=== PATIENT | female | born 2000 | race Caucasian/White ===

== ENCOUNTER 2020-03-12 16:03 | Emergency (ER) | payer OTHER ==
[2020-03-12] MEDS ORDERED: methylPREDNISolone SOD SUCCI 125 MG/2 ML VIAL IM ONE (16:28)
--- NOTE | 2020-03-12 17:39 | ED ---
Allergic Reaction HPI - General Chief complaint: Allergic Reaction Stated complaint: Allergic reaction Time Seen by Provider: 03/12/20 16:12 Source: patient Mode of arrival: ambulatory Limitations: no limitations - History of Present Illness Initial Comments: Patient is a 19-year-old female presenting to the emergency Department with complaints of an ALLERGIC reaction that started yesterday. Patient states she is highly ALLERGIC to corn and even the smell from popcorn can trigger her ALLERGY. Patient states yesterday at work, someone she works with me popcorn and she smelled in the hallway. Patient states shortly after she felt like her throat was swelling. Patient states she did not have any difficulty breathing, no rashes, no vomiting. Patient states when she got home her mother gave her 50 mg of Benadryl and she was able to go to sleep. Patient states when she woke up this morning she was still feeling symptomatic so they repeated the Benadryl dose a can and then again at approximately 2 hours prior to arrival. Patient again states she is not having any difficulty breathing continues to have no other symptoms other than the feeling of her throat being swollen. She states she was able to eat a sandwich and has been able to drink fluids without difficulty. Patient states she does have an EpiPen at home but has never had to use that. She states she is not at this time. She has no further complaints at this time. Upon arrival to the ER, her vital signs are stable. - Related Data Previous Rx's Medication Instructions Recorded predniSONE 10 mg PO BID 3 Days #6 tab 03/12/20 Allergies Allergy/AdvReac Type Severity Reaction Status Date / Time corn Allergy Unknown Verified 03/12/20 16:09 Review of Systems ROS Statement: Those systems with pertinent positive or pertinent negative responses have been documented in the HPI. ROS Other: All systems not noted in ROS Statement are negative. Past Medical History Past Medical History: No Reported History History of Any Multi-Drug Resistant Organisms: None Reported Past Surgical History: Adenoidectomy, Tonsillectomy Past Psychological History: Anxiety Smoking Status: Former smoker Past Alcohol Use History: None Reported Past Drug Use History: None Reported General Exam - General Exam Comments Initial Comments: GENERAL: Patient is well-developed and well-nourished. Patient is nontoxic and in no acute distress. HEAD: Atraumatic, normocephalic. EYES: Pupils equal round and reactive to light, extraocular movements intact, sclera anicteric, conjunctiva are normal. Eyelids were unremarkable. ENT: TMs normal, nares patent, oropharynx clear without exudates. Moist mucous membranes. NECK: Normal range of motion, supple without lymphadenopathy or JVD. LUNGS: Unlabored respirations. Breath sounds clear to auscultation bilaterally and equal. No wheezes rales or rhonchi. HEART: Regular rate and rhythm without murmurs, rubs or gallops. ABDOMEN: Soft, nontender, normoactive bowel sounds. No guarding, no rebound. No masses appreciated. : Deferred MUSCULOSKELETAL: Normal extremities with adequate strength and normal range of motion, no pitting or edema. No clubbing or cyanosis. NEUROLOGICAL: Patient is alert and oriented x 3. Motor and sensory are also intact. Cranial nerves II through XII grossly intact. Symmetrical smile. Normal speech, normal gait. PSYCH: Normal mood, normal affect. SKIN: Warm, Dry, normal turgor, no rashes or lesions noted. Limitations: no limitations Course Vital Signs 03/12/20 03/12/20 03/12/20 16:06 17:07 18:08 Temperature 98.1 F 98.3 F Pulse Rate 107 H 96 Respiratory 18 16 18 Rate Blood Pressure 116/87 119/75 O2 Sat by Pulse 98 100 Oximetry Medical Decision Making - Medical Decision Making Patient is a 19-year-old female here for possible ALLERGIC reaction to the smell a popcorn yesterday at her work. She has been taking 50 mg of Benadryl since last night, her last dose was about 2 hours prior to arrival. Her vital signs are stable. She is in absolutely no acute distress, she has been eating and drinking. Her exam is unremarkable. I did order 125 mg of solu-Medrol. Patient was reassessed a short time later and states her symptoms have improved. She feels much better. Her vital signs remained stable. Patient is stable for discharge. I discharged her with a 3 day course of steroids to continue and start tomorrow. She can follow up with her family doctor. Patient is in agreement with this plan of care. Return parameters were discussed with the patient she verbalized understanding. Case discussed with Dr. Jarrell. Disposition Clinical Impression: Food allergy Disposition: HOME SELF-CARE Condition: Stable Instructions (If sedation given, give patient instructions): Food Allergy (ED) Additional Instructions: Please return to the Emergency Department if symptoms worsen or any other concerns. Take medication as prescribed. Follow up with PCP as needed. Prescriptions: predniSONE 10 mg PO BID 3 Days #6 tab Is patient prescribed a controlled substance at d/c from ED?: No Referrals: Berkley Wheat MD [Primary Care Provider] - 1-2 days
[2020-03-12 18:09] VITALS: BP 119/75; PULSE 96; RESP 18; TEMP 98.3
== END 2020-03-12 18:10 | disposition home or self-care (01) ==
LOC: EC 16:03
DX: T78.1XXA Other adverse food reactions, not elsewhere classified, initial encounter (principal); Z87.891 Personal history of nicotine dependence; Z91.018 Allergy to other foods
CPT/HCPCS: 96372; 99283; J2930